=== PATIENT | female | born 1960 | race Caucasian/White ===

== ENCOUNTER 2018-03-17 20:24 | Emergency (ER) | payer OTHER ==
[2018-03-17] MEDS ORDERED: Lorazepam 1 MG TAB ONE (20:55)
--- NOTE | 2018-03-17 21:26 | RAD ---
PORTABLE UPRIGHT FRONTAL CHEST RADIOGRAPH: Date: 03-17-18 Comparison: 02-25-18 History: Dyspnea, chest pain. FINDINGS: There is no pneumothorax or pleural fluid. No focal consolidation or alveolar edema. Heart and medias tinal contours are stable. Mild increased linear interstitial density with mild pulmonary hyperinflat ion. IMPRESSION: No acute finding. POS: [facility]
== END 2018-03-17 22:01 | disposition home or self-care (01) ==
LOC: ERS 20:24
DX: J40 Bronchitis, not specified as acute or chronic (principal); Z87.891 Personal history of nicotine dependence
CPT/HCPCS: 71045; 93005; J7620

== ENCOUNTER 2019-03-10 09:07 | Emergency (ER) | payer OTHER | END 2019-03-10 09:45 | disposition left against medical advice (07) | LOC: ERS 09:07 | DX: M54.5 Low back pain (principal); G89.29 Other chronic pain; F17.210 Nicotine dependence, cigarettes, uncomplicated; J45.909 Unspecified asthma, uncomplicated; Z79.51 Long term (current) use of inhaled steroids | CPT/HCPCS: 72148; 99283 ==